=== PATIENT | female | born 1980 | race Caucasian/White ===

== ENCOUNTER → 2023-11-29 | Outpatient (CLI) | payer OTHER ==
--- NOTE | 2023-11-29 10:11 | US ---
EXAMINATION TYPE: US pelvic complete DATE OF EXAM: 11/29/2023 COMPARISON: NONE CLINICAL INDICATION: Female, 43 years old with history of R10.2 PELVIC AND PERINEAL PAIN; right sided pelvic pain, patient states she knows she has right ovarian cyst, 2 c-sections, cycles getting heavi er TECHNIQUE: TA. Transabdominal sonographic images of the pelvis were acquired Date of LMP: 11/12/2023 EXAM MEASUREMENTS: Uterus: 11.9 x 5.2 x 5.2cm Endometrial Stripe: 0.7cm Right Ovary: 2.3 x 4.2 x 1.9cm Left Ovary: 2.8 x 2.1 x 2.0cm 1. Uterus: Anteverted wnl 2. Endometrium: wnl 3. Right Ovary: dominate follicles versus small cyst = 1.5 x 1.8 x 1.7cm 4. Left Ovary: wnl 5. Bilateral Adnexa: wnl 6. Posterior cul-de-sac: wnl Unremarkable anteverted ultrasound. Endometrium is within normal limits. Dominant follicles within th e right ovary. Left ovary is unremarkable. No free fluid. IMPRESSION: No ultrasound evidence for an acute process.
== END | disposition home or self-care (01) ==
LOC: RADUSWWP 09:43
PROVIDERS: ATTEND Internal Medicine
DX: R10.2 Pelvic and perineal pain (principal)
CPT/HCPCS: 76856

== ENCOUNTER → 2024-01-05 | Outpatient (CLI) | payer OTHER ==
[2024-01-05 15:18] LABS: Basophils # (A) 0.04 X 10*3/uL (0.00-0.10); Basophils % (A) 0.5 %; Eosinophils # (A) 0.19 X 10*3/uL (0.04-0.35); Eosinophils % (A) 2.5 %; HCT 38.7 % (37.2-46.3); HGB 11.9 g/dL (12.0-15.0); Lymphocytes # (A) 2.09 X 10*3/uL (0.90-5.00); Lymphocytes % (A) 27.2 %; MCH 25.9 pg (27.0-32.0); MCHC 30.7 g/dL (32.0-37.0); MCV 84.3 FL (80.0-97.0); Mean Platelet Volume 11.7 FL (9.5-12.2); Monocytes # (A) 0.51 X 10*3/uL (0.20-1.00); Monocytes % (A) 6.6 %; NRBC Per 100 WBC 0 X 10*3/uL (0.00-0.01); Neutrophils # (A) 4.84 X 10*3/uL (1.80-7.70); Neutrophils % (A) 62.9 %; Platelet Count 272 X 10*3/uL (140-440); RBC 4.59 X 10*6/uL (4.10-5.20); RDW 16.6 % (11.5-14.5); WBC 7.69 X 10*3/uL (4.50-10.00)
== END | disposition home or self-care (01) ==
LOC: LABPAT 10:42
PROVIDERS: ATTEND Obstetrics & Gynecology
DX: Z01.812 Encounter for preprocedural laboratory examination (principal); N92.0 Excessive and frequent menstruation with regular cycle
CPT/HCPCS: 36415; 85025

== ENCOUNTER 2024-01-13 09:30 | Day surgery (SDC) | payer OTHER ==
[~2024-01-13 09:30] MED LIST: Pre Op ABX Message 1 EACH MISC MISCELLANE ONE
[2024-01-13] MEDS: IV FLUID CONTINUATION 1,000 ML IV ONE ×2 (09:55→12:20)
[2024-01-13 10:00] VITALS: TEMP 98.3
[2024-01-13] MEDS: LACTATED RINGERS 1,000 ML IV SCH (10:26)
[2024-01-13] MEDS: ONDANSETRON 4 MG/2 ML VIAL IVP ONE (10:26)
[2024-01-13] MEDS: DEXAMETHASONE SOD PHOSPHATE 4 MG/ML 1 ML VIAL IV ONE (10:27)
[2024-01-13] MEDS ORDERED: fentaNYL (PF) 50 MCG/ML 2 ML AMP ONE (10:36)
[2024-01-13] MEDS ORDERED: PROPOFOL 10 MG/ML 20 ML VIAL IV ONE (10:36)
[2024-01-13] MEDS ORDERED: LIDOCAINE 1% INJ 10MG/ML (20 ML MDV) ONE (10:36)
[2024-01-13] MEDS ORDERED: SUCCINYLCHOLINE CHLORIDE 200 MG/10 ML VIAL IV ONE (10:36)
[2024-01-13] MEDS ORDERED: MIDAZOLAM 2 MG/2 ML VIAL ONE (10:36)
[2024-01-13] MEDS ORDERED: KETOROLAC 15 MG/ML 1 ML VIAL ONE (10:36)
[2024-01-13] MEDS ORDERED: diphenhydrAMINE 50 MG/ML 1 ML VIAL IVP PRN (11:17)
[2024-01-13] MEDS ORDERED: Acetaminophen-Codeine 300-30mg TAB PO PRN (11:17)
[2024-01-13] MEDS ORDERED: METOCLOPRAMIDE 5 MG/ML 2 ML VIAL IVP PRN (11:17)
[2024-01-13] MEDS ORDERED: IBUPROFEN 600 MG TAB PO PRN (11:17)
[2024-01-13] MEDS ORDERED: SIMETHICONE 80 MG CHEWABLE PO PRN (11:17)
[2024-01-13] MEDS ORDERED: KETOROLAC 15 MG/ML 1 ML VIAL IVP PRN (11:17)
[2024-01-13] MEDS: HYDROmorphone 0.5 MG/0.5 ML SYRINGE IVP PRN (11:29)
--- NOTE | 2024-01-13 11:29 | P.OP ---
Date of Procedure: 01/13/24 Preoperative Diagnosis: #1. Menorrhagia Postoperative Diagnosis: Same Procedure(s) Performed: #1. Diagnostic hysteroscopy #2. NovaSure endometrial ablation Anesthesia: ANGEL Surgeon: Enmanuel Villalpando Estimated Blood Loss (ml): 5 IV fluids (ml): 500 Urine output (ml): 20 Pathology: none sent Condition: stable Disposition: PACU Operative Findings: Preoperative pelvic examination demonstrated a roughly 5-week slightly anteverted mobile normal shaped uterus with normal adnexa bilaterally. Intraoperatively, the uterus sounded to approximately 9 cm with a rough cervical length of 3.5 cm. Using the hysteroscope, there was no evidence of any pathology and both tubal ostia were seen. The settings for the NovaSure tool were a length of 5.5 cm, a width of 3.3 cm with a total power of 100 W. After a total run time of 69 seconds, the base unit read "procedure complete. The postprocedural hysteroscopic result appeared to be quite good though there was a small strip of pinkish tissue along the very top of the fundus which may not have been touched by the array. The patient is a very poor candidate for vaginal hysterectomy should it become necessary in the future. Description of Procedure: The patient was prepped and draped in usual fashion after general endotracheal anesthesia was administered by the anesthesiologist. A weighted speculum was placed and the bladder drained of approximate 20 cc of clear mary urine. The anterior lip of the cervix was grasped with a single-tooth tenaculum and the uterus sounded to 9 cm with a cervical length of 3.5 cm. Serial dilation was carried out to admit the diagnostic hysteroscope with the findings as noted above. There was no evidence of any significant pathology and both tubal ostia were seen. The scope was set aside and the NovaSure ablation tube was placed into the endometrial cavity with a length setting of 5.5 cm. It was opened and seated well and a width of 3.3 cm was determined for a total power of 100 W. The cavity check was carried out and passed without difficulty. The tool was enabled and the run was started. After a total run time of 69 seconds, the base unit read "procedure complete." The 2 was closed, removed, and discarded. The diagnostic scope was replaced within the endometrial cavity and the result appeared to be excellent aside from a small strip of pinkish tissue at the very fundal portion of the uterus where the array may not have touched it. All instrumentation was then removed. There was no ongoing bleeding from either the tenaculum site nor from the cervix. Estimated blood loss for the case was 5 mL or less. There were no complications. All sponge, instrument, and needle counts were correct. The patient tolerated the procedure well and proceeded to the recovery room in stable condition.
[2024-01-13] MEDS ORDERED: LACTATED RINGERS 1,000 ML IV SCH (11:30)
[2024-01-13 12:36] VITALS: RESP 16
[2024-01-13] MEDS: Acetaminophen-Codeine 300-30mg TAB PO PRN (12:54)
[2024-01-13] MEDS: ONDANSETRON 4 MG/2 ML VIAL IVP PRN (13:29)
[2024-01-13 14:47] VITALS: BP 126/72; PULSE 80
[2024-01-14] MEDS ORDERED: ACETAMINOPHEN TAB 325 MG TAB PO PRN (11:18)
== END 2024-01-13 15:03 | disposition home or self-care (01) ==
LOC: OR 09:30
PROVIDERS: ATTEND Obstetrics & Gynecology
DX: N92.0 Excessive and frequent menstruation with regular cycle (principal); D64.9 Anemia, unspecified; E78.5 Hyperlipidemia, unspecified; K21.9 Gastro-esophageal reflux disease without esophagitis; F41.9 Anxiety disorder, unspecified; F41.0 Panic disorder [episodic paroxysmal anxiety]; Z79.82 Long term (current) use of aspirin; Z79.1 Long term (current) use of non-steroidal anti-inflammatories (NSAID); Z79.899 Other long term (current) drug therapy; Z87.891 Personal history of nicotine dependence; Z86.718 Personal history of other venous thrombosis and embolism; Z88.1 Allergy status to other antibiotic agents; Z88.2 Allergy status to sulfonamides
CPT/HCPCS: 81025

== ENCOUNTER → 2024-12-06 | Outpatient (CLI) | payer OTHER ==
--- NOTE | 2024-12-06 16:53 | MM ---
Reason for Exam: Screening (asymptomatic). Last mammogram was performed 2 year(s) and 0 month(s) ago. Patient History: Menarche at age 9. First Full-Term at age 26. Patient has history of breast feeding. Currently using Progesterone, for 4 months. Risk Values: Amada 5 year model risk: 1.0%. NCI Lifetime model risk: 11.6%. Prior Study Comparison: 11/26/2022 Bilateral MG 3D screening mammo w/cad, [facility]. Tissue Density: The breasts are heterogeneously dense, which may obscure small masses. Findings: Analyzed By CAD. Areas of asymmetric density are unchanged. There is no suspicious group of microcalcifications or new suspicious mass in either breast. Overall Assessment: Benign, BI-RAD 2 Management: Screening Mammogram of both breasts in 1 year. Patient should continue monthly self-breast exams. A clinical breast exam by your physician is recommended on an annual basis. This exam should not preclude additional follow-up of suspicious palpable abnormalities. Note on Amada scores and lifetime risk: 1. A Amada score greater than 3% is considered moderate risk. If this is the case, consider specialist referral to assess eligibility for a risk reducing agent. 2. If overall lifetime risk for the development of breast cancer is 20% or higher, the patient may qualify for future screening with alternating mammogram and breast MRI. [facility], , 12/06/2024 4:50 PM. Electronically signed and approved by: Rika Winters M.D. Radiologist
== END | disposition home or self-care (01) ==
LOC: RADMAMWWP 11:27
PROVIDERS: ATTEND Internal Medicine
DX: Z12.31 Encounter for screening mammogram for malignant neoplasm of breast (principal); R92.333 Mammographic heterogeneous density, bilateral breasts
CPT/HCPCS: 77063; 77067